=== PATIENT | male | born 1980 | race American Indian/Alaskan Native ===

== ENCOUNTER 2017-02-18 20:59 | Emergency (ER) | payer SELFPAY ==
[2017-02-18] MEDS ORDERED: TORADOL IV ONE (21:05)
[2017-02-18] MEDS ORDERED: TORADOL ONE (21:06)
[2017-02-18] MEDS ORDERED: ZOFRAN IV ONE (21:52)
[2017-02-18] MEDS ORDERED: DILAUDID IV ONE ×2 (21:52→22:29)
[2017-02-18] MEDS ORDERED: NACL 0.9% 1000 ML 1,000 ML IV ONE (21:53)
--- NOTE | 2017-02-18 21:57 | Emergency Department Report ---
ED Abdominal Pain HPI - General Chief Complaint: Abdominal Pain Stated Complaint: ABD PAIN Time Seen by Provider: 02/18/17 21:47 Source: patient Mode of arrival: Wheelchair Limitations: No Limitations - History of Present Illness Initial Comments: 36-year-old male with a past medical history of hypertension and kidney stones presents to the hospital complains of right flank pain 4 days. Pain was initially intermittent but became more severe and persisted today. Rated 10/10 intensity, constant, described as a tightness. No aggravating or alleviating factor reported. Positive diaphoresis. Denies nausea, vomiting, dysuria, hematuria, or fever. Patient has a history of a kidney stone in the past 1 that resolved without intervention but states that the pain today is different. Denies previous surgeries. Patient received Toradol prior to my evaluation without improvement. Initial BP is 186/122 as documented on paper by triage nurse. Patient has a history of hypertension not currently on meds. Severity scale (0 -10): 10 - Related Data Previous Rx's Medication Instructions Recorded Last Taken Type Ketorolac [Toradol] 10 mg PO Q6H PRN #20 tablet 02/18/17 Unknown Rx Ondansetron [Zofran Odt] 4 mg PO Q8HR PRN #20 tab.rapdis 02/18/17 Unknown Rx Oxycodone HCl/Acetaminophen 1 each PO Q6HR PRN #20 tablet 02/18/17 Unknown Rx [Percocet 7.5/325 mg] Tamsulosin [Flomax] 0.4 mg PO QDAY #7 cap 02/18/17 Unknown Rx amLODIPine [Norvasc] 5 mg PO DAILY #30 tablet 02/19/17 Unknown Rx Allergies Allergy/AdvReac Type Severity Reaction Status Date / Time No Known Allergies Allergy Verified 02/18/17 21:02 ED Review of Systems ROS: Stated complaint: ABD PAIN Other details as noted in HPI Comment: All other systems reviewed and negative Other: Constitutional: No fevers chills Eyes: No eye pain visual changes ENT: No ear pain or throat pain Neck: Denies pain Respiratory: Denies cough wheezing shortness of breath Cardiovascular: Denies chest pain, palpitations, syncope GI: As per HPI : Denies dysuria Musculoskeletal: Denies joint swelling Skin: Denies rash, lesions, erythema Neurologic: Denies headache, numbness, weakness Psychiatric: Denies suicidal ideation, hallucinations ED Past Medical Hx - Past Medical History Previous Medical History?: Yes Hx Hypertension: Yes Additional medical history: KIDNEY STONES - Surgical History Past Surgical History?: No - Social History Smoking Status: Never Smoker Substance Use Type: Alcohol - Medications Home Medications: Home Medications Medication Instructions Recorded Confirmed Last Taken Type Ketorolac [Toradol] 10 mg PO Q6H PRN #20 tablet 02/18/17 Unknown Rx Ondansetron [Zofran Odt] 4 mg PO Q8HR PRN #20 tab.rapdis 02/18/17 Unknown Rx Oxycodone HCl/Acetaminophen 1 each PO Q6HR PRN #20 tablet 02/18/17 Unknown Rx [Percocet 7.5/325 mg] Tamsulosin [Flomax] 0.4 mg PO QDAY #7 cap 02/18/17 Unknown Rx amLODIPine [Norvasc] 5 mg PO DAILY #30 tablet 02/19/17 Unknown Rx ED Physical Exam - General Limitations: No Limitations - Other Other exam information: General: No limitations, positive distress secondary to pain Head exam: Atraumatic, normocephalic Eyes exam: Normal appearance, pupils equal reactive to light, extraocular movements intact ENT: Moist mucous membrane, normal oropharynx Neck exam: Normal inspection, full range of motion, no meningismus nontender Respiratory exam: Clear to auscultation bilateral, no wheezes, rales, crackles Cardiovascular: Normal rate and rhythm, normal heart sounds Abdomen: Soft, nondistended, no tenderness over right lower quadrant. Right flank tenderness, with normal bowel sounds, no rebound, or guarding Extremity: Full range of motion normal inspection no deformity Back: Normal Inspection, full range of motion, right CVA tenderness Neurologic: Alert, oriented x3, cranial nerves intact, no motor or sensory deficit Psychiatric: normal affect, normal mood Skin: Diaphoresis ED Course Vital Signs 02/18/17 02/19/17 21:02 00:42 Temperature 97.7 F Pulse Rate 66 62 Respiratory 16 Rate Blood Pressure 164/108 [Right] O2 Sat by Pulse 100 99 Oximetry - Reevaluation(s) Reevaluation #1: 02/18/17 21:57 Additional meds ordered Dilaudid 0.5 mg, Zofran, and normal saline. CT, labs, UA pending 02/18/17 21:57 02/18/17 23:30 Pain persisted until patient received additional Dilaudid 1 mg. Awaiting UA collection Reevaluation #2: 02/19/17 00:40 pt symptoms have improved. 02/19/17 00:53 BP improved to 164/108 with pain relief. [facility] ordered ED Medical Decision Making - Lab Data Result diagrams: 02/18/17 21:47 02/18/17 21:47 Lab Results 02/18/17 02/18/17 02/18/17 Range/Units 00:01 21:47 21:47 WBC 5.9 (4.5-11.0) K/mm3 RBC 5.27 H (3.65-5.03) M/mm3 Hgb 15.1 (11.8-15.2) gm/dl Hct 45.4 (35.5-45.6) % MCV 86 (84-94) fl MCH 29 (28-32) pg MCHC 33 (32-34) % RDW 13.2 (13.2-15.2) % Plt Count 211 (140-440) K/mm3 Lymph % (Auto) 42.3 H (13.4-35.0) % [place] % (Auto) 8.2 H (0.0-7.3) % Eos % (Auto) 0.8 (0.0-4.3) % Baso % (Auto) 0.4 (0.0-1.8) % Lymph # 2.5 (1.2-5.4) K/mm3 [place] # 0.5 (0.0-0.8) K/mm3 Eos # 0.0 (0.0-0.4) K/mm3 Baso # 0.0 (0.0-0.1) K/mm3 Seg Neutrophils % 48.3 (40.0-70.0) % Seg Neutrophils # 2.9 (1.8-7.7) K/mm3 Sodium 140 (137-145) mmol/L Potassium 3.7 (3.6-5.0) mmol/L Chloride 102.8 (98-107) mmol/L Carbon Dioxide 26 (22-30) mmol/L Anion Gap 15 mmol/L BUN 14 (9-20) mg/dL Creatinine 1.2 (0.8-1.5) mg/dL Estimated GFR > 60 ml/min BUN/Creatinine Ratio 11.66 % Glucose 93 (75-100) mg/dL Calcium 9.5 (8.4-10.2) mg/dL Urine Color Straw (Yellow) Urine Turbidity Clear (Clear) Urine pH 7.0 (5.0-7.0) Ur Specific Burt 1.008 (1.003-1.030) Urine Protein <15 mg/dl (Negative) mg/dL Urine Glucose (UA) Neg (Negative) mg/dL Urine Ketones Tr (Negative) mg/dL Urine Blood Sm (Negative) Urine Nitrite Neg (Negative) Urine Bilirubin Neg (Negative) Urine Urobilinogen < 2.0 (<2.0) mg/dL Ur Leukocyte Esterase Neg (Negative) Urine WBC (Auto) 2.0 (0.0-6.0) /HPF Urine RBC (Auto) 4.0 (0.0-6.0) /HPF U Epithel Cells (Auto) < 1.0 (0-13.0) /HPF Urine Mucus 1+ /HPF - Radiology Data Radiology results: report reviewed CT abdomen and pelvis noncontrast: Proximal 0.5 cm right ureteral stone with mild hydronephrosis. 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 - Medical Decision Making Pain is controlled in the ED and patient tolerating by mouth without vomiting. Plan discharge on meds for symptomatic treatment for renal colic and encouraged neurology follow-up. Norvasc will be prescribed for chronic hypertension - Differential Diagnosis Biliary colic, renal colic, UTI, appendicitis, dissection Critical Care Time: No Critical care attestation.: If time is entered above; I have spent that time in minutes in the direct care of this critically ill patient, excluding procedure time. ED Disposition Clinical Impression: Renal colic on right side, HTN (hypertension) Disposition: DC-01 TO HOME OR SELFCARE Is pt being admited?: No Does the pt Need Aspirin: No Instructions: Renal Colic (ED), Hypertension (ED) Additional Instructions: Take the medication as as prescribed. Follow-up wit the urologist provided. Return if symptoms worsen. Take the copy of the cat scan results to your doctor for follow up. Prescriptions: amLODIPine [Norvasc] 5 mg PO DAILY #30 tablet Ketorolac [Toradol] 10 mg PO Q6H PRN #20 tablet PRN Reason: Pain Ondansetron [Zofran Odt] 4 mg PO Q8HR PRN #20 tab.rapdis PRN Reason: Nausea And Vomiting Oxycodone HCl/Acetaminophen [Percocet 7.5/325 mg] 1 each PO Q6HR PRN #20 tablet PRN Reason: Pain Tamsulosin [Flomax] 0.4 mg PO QDAY #7 cap Referrals: YESSENIA HANKINS MD [Staff Physician] - 3-5 Days [facility] [Provider Group] - 3-5 Days Time of Disposition: 00:54
[2017-02-18 22:08] LABS: Basophils % (Auto) 0.4 % (0.0-1.8); Eosinophils % (Auto) 0.8 % (0.0-4.3); Hematocrit 45.4 % (35.5-45.6); Hemoglobin 15.1 gm/dl (11.8-15.2); Mean Corpuscular HGB Conc 33 % (32-34); Mean Corpuscular Hemoglobin 29 pg (28-32); Mean Corpuscular Volume 86 fl (84-94); Platelet Count 211 K/mm3 (140-440); Red Blood Count 5.27 M/mm3 (3.65-5.03); Red Cell Distribution Width 13.2 % (13.2-15.2); White Blood Count 5.9 K/mm3 (4.5-11.0)
[2017-02-18 22:20] LABS: Anion Gap 15 mmol/L; BUN/Creatinine Ratio 11.66; Blood Urea Nitrogen 14 mg/dL (9-20); Calcium 9.5 mg/dL (8.4-10.2); Carbon Dioxide 26 mmol/L (22-30); Chloride 102.8 mmol/L (98-107); Glucose 93 mg/dL (75-100); Potassium 3.7 mmol/L (3.6-5.0); Sodium 140 mmol/L (137-145)
--- NOTE | 2017-02-18 23:13 | Cat Scan Report ---
FINAL REPORT PROCEDURE: CT ABDOMEN PELVIS WO CON TECHNIQUE: Computerized axial tomography of the abdomen and pelvis was performed without intravenous contrast. HISTORY: right flank pain, hx of kidney stone COMPARISON: No prior studies are available for comparison. FINDINGS: Visualized lower thorax: No significant abnormality. Liver: Normal size and attenuation. Spleen: Normal size and attenuation. Gallbladder and biliary system: Normal. Pancreas: Normal. Adrenals: Normal. Kidneys: There is mild right hydronephrosis. There is 0.5 cm right proximal ureteral stone. There is nephrocalcinosis with punctate calcifications at the lower pole of the left kidney.. GI tract: Normal. No dilated loops of large or small bowel Lymph nodes and mesentery: Normal. Vasculature: Normal. Bladder: Normal. Reproductive organs: Normal. Peritoneum: No free fluid. Musculoskeletal structures: No significant abnormality. Other: None. IMPRESSION: Right proximal ureteral stone with hydronephrosis.. Nephrocalcinosis on the left
[2017-02-19 00:16] LABS: Bilirubin,Urine NEG (Negative); Blood,Urine SM (Negative); Ketones,Urine TR mg/dL (Negative); Leukocyte Esterase,Urine NEG (Negative); Mucus,Urine 1+ /HPF; Nitrite,Urine NEG (Negative); Protein,Urine <15 mg/dL mg/dL (Negative); Urobilinogen,Urine < 2.0 mg/dL (<2.0)
[2017-02-19 00:43] VITALS: BP 164/108
[2017-02-19] MEDS ORDERED: NORVASC PO ONE (00:51)
== END 2017-02-19 01:45 | disposition home or self-care (01) ==
LOC: ED 20:59
DX: N23 Unspecified renal colic (principal); I10 Essential (primary) hypertension
CPT/HCPCS: 36415; 74176; 80048; 81001; 85025; 96361; 96374; 96375; 99284; J1170; J1885; J2405; J7030

== ENCOUNTER 2017-08-06 14:04 | Emergency (ER) | payer SELFPAY ==
[2017-08-06 15:12] LABS: Basophils % (Auto) 0.2 % (0.0-1.8); Hematocrit 47.3 % (35.5-45.6); Hemoglobin 15.5 gm/dl (11.8-15.2); Mean Corpuscular HGB Conc 33 % (32-34); Mean Corpuscular Hemoglobin 29 pg (28-32); Mean Corpuscular Volume 87 fl (84-94); Platelet Count 217 K/mm3 (140-440); Red Blood Count 5.43 M/mm3 (3.65-5.03); Red Cell Distribution Width 13.2 % (13.2-15.2); White Blood Count 5.7 K/mm3 (4.5-11.0)
[2017-08-06 15:45] LABS: Alanine Aminotransferase 36 units/L (7-56); Albumin 4.2 g/dL (3.9-5); Albumin/Globulin Ratio 1.4 %; Alkaline Phosphatase 72 units/L (35-129); Anion Gap 19 mmol/L; BUN/Creatinine Ratio 11; Blood Urea Nitrogen 14 mg/dL (9-20); Calcium 9.7 mg/dL (8.4-10.2); Carbon Dioxide 27 mmol/L (22-30); Chloride 102.5 mmol/L (98-107); Glucose 83 mg/dL (75-100); Lipase 18 units/L (13-60); Potassium 4.6 mmol/L (3.6-5.0); Sodium 144 mmol/L (137-145); Total Protein 7.1 g/dL (6.3-8.2)
--- NOTE | 2017-08-06 19:54 | Emergency Department Report ---
ED Male HPI - General Chief complaint: Abdominal Pain Stated complaint: RIGHT SIDE FLANK PAIN Time Seen by Provider: 08/06/17 19:53 Source: patient Mode of arrival: Ambulatory Limitations: No Limitations - History of Present Illness Initial comments: 37-year-old male past medical history kidney stones presents with complaint of acute onset right-sided flank pain since last night with some associated nausea. Patient states he has slightly increased urinary frequency. Denies hematuria. Denies foul-smelling urine. Patient is awake alert and oriented 3 appears to be uncomfortable. States approximately 6 months ago he had an episode of renal colic. MD Complaint: other -: Last night Severity: moderate Severity scale (0 -10): 6 Quality: aching, sharp Consistency: intermittent Improves with: none Worsens with: none - Related Data Previous Rx's Medication Instructions Recorded Last Taken Type Ketorolac [Toradol] 10 mg PO Q6H PRN #20 tablet 02/18/17 Unknown Rx Ondansetron [Zofran Odt] 4 mg PO Q8HR PRN #20 tab.rapdis 02/18/17 Unknown Rx Oxycodone HCl/Acetaminophen 1 each PO Q6HR PRN #20 tablet 02/18/17 Unknown Rx [Percocet 7.5/325 mg] Tamsulosin [Flomax] 0.4 mg PO QDAY #7 cap 02/18/17 Unknown Rx amLODIPine [Norvasc] 5 mg PO DAILY #30 tablet 02/19/17 Unknown Rx HYDROcodone/APAP 5-325 [[place] 1 each PO Q6HR PRN #14 tablet 08/06/17 Unknown Rx 5/325] Ibuprofen [Motrin] 800 mg PO Q8HR PRN #20 tablet 08/06/17 Unknown Rx Ondansetron [Zofran Odt] 4 mg PO Q8HR PRN #15 tab.rapdis 08/06/17 Unknown Rx Tamsulosin [Flomax] 0.4 mg PO QDAY #7 cap 08/06/17 Unknown Rx amLODIPine [Norvasc] 10 mg PO DAILY #30 tab 08/06/17 Unknown Rx Allergies Allergy/AdvReac Type Severity Reaction Status Date / Time No Known Allergies Allergy Verified 02/18/17 21:02 ED Review of Systems ROS: Stated complaint: RIGHT SIDE FLANK PAIN Other details as noted in HPI Constitutional: denies: chills, fever Eyes: denies: eye pain, eye discharge, vision change ENT: denies: ear pain, throat pain Respiratory: denies: cough, shortness of breath, wheezing Cardiovascular: denies: chest pain, palpitations Endocrine: no symptoms reported Gastrointestinal: abdominal pain (+ right sided flank pain). denies: nausea, diarrhea Genitourinary: denies: urgency, dysuria Musculoskeletal: denies: back pain, joint swelling, arthralgia Skin: denies: rash, lesions Neurological: denies: headache, weakness, paresthesias Psychiatric: denies: anxiety, depression Hematological/Lymphatic: denies: easy bleeding, easy bruising ED Past Medical Hx - Past Medical History Hx Hypertension: Yes Additional medical history: KIDNEY STONES - Social History Smoking Status: Never Smoker Substance Use Type: Alcohol - Medications Home Medications: Home Medications Medication Instructions Recorded Confirmed Last Taken Type Ketorolac [Toradol] 10 mg PO Q6H PRN #20 tablet 02/18/17 Unknown Rx Ondansetron [Zofran Odt] 4 mg PO Q8HR PRN #20 tab.rapdis 02/18/17 Unknown Rx Oxycodone HCl/Acetaminophen 1 each PO Q6HR PRN #20 tablet 02/18/17 Unknown Rx [Percocet 7.5/325 mg] Tamsulosin [Flomax] 0.4 mg PO QDAY #7 cap 02/18/17 Unknown Rx amLODIPine [Norvasc] 5 mg PO DAILY #30 tablet 02/19/17 Unknown Rx HYDROcodone/APAP 5-325 [[place] 1 each PO Q6HR PRN #14 tablet 08/06/17 Unknown Rx 5/325] Ibuprofen [Motrin] 800 mg PO Q8HR PRN #20 tablet 08/06/17 Unknown Rx Ondansetron [Zofran Odt] 4 mg PO Q8HR PRN #15 tab.rapdis 08/06/17 Unknown Rx Tamsulosin [Flomax] 0.4 mg PO QDAY #7 cap 08/06/17 Unknown Rx amLODIPine [Norvasc] 10 mg PO DAILY #30 tab 08/06/17 Unknown Rx ED Physical Exam - General Limitations: No Limitations General appearance: alert, in no apparent distress - Head Head exam: Present: atraumatic, normocephalic - Eye Eye exam: Present: normal appearance, PERRL, EOMI - ENT ENT exam: Present: mucous membranes moist - Neck Neck exam: Present: normal inspection, full ROM - Respiratory Respiratory exam: Present: normal lung sounds bilaterally. Absent: respiratory distress - Cardiovascular Cardiovascular Exam: Present: regular rate, normal rhythm. Absent: systolic murmur, diastolic murmur, rubs, gallop - GI/Abdominal GI/Abdominal exam: Present: soft, normal bowel sounds - Rectal Rectal exam: Present: deferred - Extremities Exam Extremities exam: Present: normal inspection - Back Exam Back exam: Present: normal inspection, CVA tenderness (R) - Neurological Exam Neurological exam: Present: alert, oriented X3, CN II-XII intact, normal gait - Psychiatric Psychiatric exam: Present: normal affect, normal mood - Skin Skin exam: Present: warm, dry, intact, normal color. Absent: rash ED Course Vital Signs 08/06/17 08/06/17 08/06/17 14:30 21:00 21:22 Temperature 98.6 F Pulse Rate 88 66 Respiratory 20 16 18 Rate Blood Pressure 172/112 152/97 O2 Sat by Pulse 100 100 Oximetry ED Medical Decision Making - Lab Data Result diagrams: 08/06/17 14:48 08/06/17 14:48 - Medical Decision Making A/P: renal colic, refill on hypertension medication 1-Zofran when necessary, [place] when necessary, Flomax 2-refill on amlodipine 3-follow-up with primary care and urology 4- case discussed with Dr. Pierre before discharge. Stone is 5 mm. I advised patient that if he experiences worsening pain fevers chills and inability to tolerate by mouth to return to the ED immediately. I provided the patient with a urine cup 5- tolerating by mouth fluid and food Critical care attestation.: If time is entered above; I have spent that time in minutes in the direct care of this critically ill patient, excluding procedure time. ED Disposition Clinical Impression: Renal colic on right side Disposition: DC-01 TO HOME OR SELFCARE Is pt being admited?: No Does the pt Need Aspirin: No Instructions: Renal Colic (ED) Prescriptions: amLODIPine [Norvasc] 10 mg PO DAILY #30 tab HYDROcodone/APAP 5-325 [[place] 5/325] 1 each PO Q6HR PRN #14 tablet PRN Reason: Pain Ibuprofen [Motrin] 800 mg PO Q8HR PRN #20 tablet PRN Reason: Pain Ondansetron [Zofran Odt] 4 mg PO Q8HR PRN #15 tab.rapdis PRN Reason: Nausea Tamsulosin [Flomax] 0.4 mg PO QDAY #7 cap Referrals: [facility] [Provider Group] - 3-5 Days SUJEY CHAMBERS MD [Staff Physician] - 3-5 Days [facility] [Outside] - 3-5 Days [facility] [Outside] - 3-5 Days Forms: Work/School Release Form(ED) Time of Disposition: 22:43
[2017-08-06] MEDS ORDERED: MORPHINE IV ONE (20:17)
[2017-08-06] MEDS ORDERED: TORADOL IV ONE (20:18)
[2017-08-06] MEDS ORDERED: ZOFRAN IV ONE (20:18)
[2017-08-06] MEDS ORDERED: NACL 0.9% 1000 ML 1,000 ML IV ONE (20:18)
[2017-08-06] MEDS ORDERED: APRESOLINE IV ONE (20:51)
[2017-08-06] MEDS ORDERED: NORVASC PO ONE (20:51)
[2017-08-06 20:58] LABS: Bilirubin,Urine NEG (Negative); Blood,Urine SM (Negative); Ketones,Urine NEG (Negative); Leukocyte Esterase,Urine TR (Negative); Mucus,Urine 3+ /HPF; Nitrite,Urine NEG (Negative); Urobilinogen,Urine < 2.0 mg/dL (<2.0)
[2017-08-06 21:26] VITALS: BP 152/97
--- NOTE | 2017-08-06 22:05 | Cat Scan Report ---
FINAL REPORT PROCEDURE: CT ABDOMEN PELVIS WO CON TECHNIQUE: Computerized axial tomography of the abdomen and pelvis was performed without intravenous contrast. HISTORY: right flank pain ? kidney stone COMPARISON: February 18, 2017 FINDINGS: Visualized lower thorax: No significant abnormality. Liver: Normal size and attenuation. Spleen: Normal size and attenuation. Gallbladder and biliary system: Normal. Pancreas: Normal. Adrenals: Normal. Kidneys: Mild right hydronephrosis with perinephric stranding. There is 0.5 cm right mid ureteral stone, series 3, image 87. GI tract: Normal. Lymph nodes and mesentery: Normal. Vasculature: Normal. Bladder: Normal. Reproductive organs: Normal. Peritoneum: No free fluid. Musculoskeletal structures: No significant abnormality. Other: None. IMPRESSION: Right ureteral stone with hydronephrosis..
== END 2017-08-06 23:10 | disposition home or self-care (01) ==
LOC: ED 14:04
DX: N23 Unspecified renal colic (principal); I10 Essential (primary) hypertension
CPT/HCPCS: 36415; 74176; 80053; 81001; 83690; 85025; 96361; 96374; 96375; 99284; J0360; J1885; J2270; J2405; J7030

== ENCOUNTER 2017-09-09 02:17 | Emergency (ER) | payer SELFPAY ==
[2017-09-09 02:31] VITALS: BP 163/96
[2017-09-09] MEDS ORDERED: TORADOL IV ONE (02:31)
[2017-09-09] MEDS ORDERED: TORADOL ONE (02:33)
[2017-09-09] MEDS ORDERED: ZOFRAN ONE (02:39)
[2017-09-09] MEDS ORDERED: ZOFRAN IV ONE (02:42)
== END 2017-09-09 12:30 | disposition left against medical advice (07) ==
LOC: ED 02:17
DX: N20.0 Calculus of kidney (principal); Z53.21 Procedure and treatment not carried out due to patient leaving prior to being seen by health care provider
CPT/HCPCS: J1885; J2405